=== PATIENT | female | born 1935 ===

== ENCOUNTER 2020-02-20 07:58 | Day surgery (SDC) | payer OTHER ==
[~2020-02-20] VITALS: Ht 152.4 cm; Wt 49.9 kg
[~2020-02-20 07:58] MED LIST: CALCIUM PO; LEVOX PO; MULTIVITAMINS1 EAC9 PO; PROP PO; TRANDOLAPRIL4 MG PO; VITAMIN D PO; ZETIA10 MG PO
[2020-02-20] MEDS ORDERED: VITAMIN D325 MC1 (09:38)
[2020-02-20] MEDS ORDERED: PROPRANOLOL HCL20 MG PO (09:38)
[2020-02-20] MEDS ORDERED: LEVOXYL50 MCG PO (09:39)
[2020-02-20] MEDS ORDERED: BUSPIRONE HCL5 MG PO (09:40)
[2020-02-20] MEDS ORDERED: CALCIUM 500 MG1 EAC1 PO (09:41)
== END 2020-02-21 08:00 | disposition home or self-care (01) ==
LOC: CIR.AMB 07:58 → SURG 07:58 → O/R 07:58 → EDSTATUS 08:30 → SURG 13:38 → O/R 13:38 → CIR.AMB 02-21 08:00 → SURG 02-21 14:05
PROVIDERS: ATTEND Surgery
DX: D12.8 Benign neoplasm of rectum (principal)
CPT/HCPCS: 0184T; 64430